=== PATIENT | female | born 1985 | race African-American/Black ===

== ENCOUNTER 2020-02-23 15:26 | Emergency (ER) | payer OTHER ==
--- NOTE | 2020-02-23 15:57 | RAD ---
RIGHT MIDDLE DIGIT RADIOGRAPH THREE VIEWS: 02/23/20 PROVIDED CLINICAL HISTORY: Pain status post injury. FINDINGS: No evidence for fracture or other acute osseous abnormality. If there is persistent clinical concern, conservative management and follow-up imaging are advised. IMPRESSION: As above. POS: [facility]
== END 2020-02-23 16:54 | disposition home or self-care (01) ==
LOC: ERS 15:26
DX: M79.644 Pain in right finger(s) (principal); I10 Essential (primary) hypertension; F41.9 Anxiety disorder, unspecified; Z79.899 Other long term (current) drug therapy